=== PATIENT | female | born 1935 | race Native Hawaiian/Other Pacific Islander ===

== ENCOUNTER 2021-01-27 16:40 | Emergency (ER) | payer OTHER, BC ==
[~2021-01-27] VITALS: Ht 162.6 cm; Wt 62.6 kg
[~2021-01-27 16:40] MED LIST: ALEVE220 M1 OR; ASPIRIN ADULT L81 MG OR; B12-ACTIVE1 MG PO; CALCIUM 500/VITAMI1 PO; CLOTRIM/BETA EX; FERROUS SULF325 MG PO; LOTENSIN HCT1 TAB; MULTIVITAMIN OR; PANT40TA PO; RANI150T78 PO
[2021-01-27 17:44] LABS: PLATELET COUNT 143 K/uL (152-353)
[2021-01-27 20:20] VITALS: BP 164/60; TEMP 98
== END 2021-01-27 20:20 | disposition home or self-care (01) ==
LOC: ED 16:40
PROVIDERS: Emergency Medicine Emergency Medical Services
DX: U07.1 COVID-19 (principal)
CPT/HCPCS: 80053; 81000; 85027; 87635; 96372; 99283; J2930; U0003

== ENCOUNTER 2022-04-26 13:17 | Outpatient (CLI) | payer OTHER, BC | END 2022-04-26 20:08 | disposition home or self-care (01) | LOC: LAB 13:17 | PROVIDERS: ATTEND Internal Medicine | DX: E86.0 Dehydration (principal); R53.1 Weakness; Z09 Encounter for follow-up examination after completed treatment for conditions other than malignant neoplasm; M15.0 Primary generalized (osteo)arthritis; I48.91 Unspecified atrial fibrillation | CPT/HCPCS: 80048; 81000; 87077; 87086; 87088; 87186 ==